=== PATIENT | female | born 1945 | race Caucasian/White ===

== ENCOUNTER 2018-04-17 12:48 | Outpatient (CLI) | payer MEDICARE, MEDICAID, SELFPAY ==
[2018-04-17] VITALS (9 sets, daily range): BP systolic 130–149; BP diastolic 79–103; PULSE 64–92; RESP 12–19; TEMP 36.2; O2SAT 93–100
--- NOTE | 2018-04-17 12:54 | DI.RAD.S_ITS ---
PROCEDURE: PAIN SI JOINT INJECTION INDICATIONS: SACROCOCCYGEAL DISORDER AND SACRAL RIDICULOPATHY FINDINGS: Fluoroscopic spot filming was performed to verify placement of spinal needles at the sacrococcygeal junction level(s), as labeled on the films. Appropriate location(s) of the needle tip(s) was confirmed by injection of iodinated contrast. IMPRESSION: Successful midline sacrococcygeal junction localization for epidural injection. Dictated by: Adrien Quinn M.D. on 04/17/2018 at 16:03 Approved by: Adrien Quinn M.D. on 04/17/2018 at 16:47
--- NOTE | 2018-04-17 13:44 | PM.PROC.1 ---
Procedures Date/Time Date of procedure: 04/17/18 Time of procedure: 14:45 General Procedure description: PREOP DIAGNOSIS 1. COCCYDYNIA POST OP DIAGNOSIS 1. COCCYDYNIA PROCEDURES 1. FLUOROSCOPICALLY GUIDED CONTRAST CONTROLLED SACRO-COCCYGEAL INJECTION PHYSICIAN: DO KATIE Sims Ana is referred by Dr. Rdz for treatment of Coccydynia FINDINGS Multilevel Stenosis S/p Lami/Fusion Syndrome DESCRIPTION OF PROCEDURE Fluoroscopically guided, contrast controlled sacro-coccygial steroid injection with Conscious Sedation Following denial of allergy and review of potential side effects and complications, including but not necessarily limited to infection, allergic reaction, local tissue breakdown, temporary or permanent nerve injury, stroke, paralysis, and possible , the patient indicated that they understood and agreed to proceed. An informed consent document was signed by the patient, witnessed by a nurse, and placed in the patient's chart. Additionally, other treatment options including medications, modalities, and physical therapy were reviewed with the patient. Per the patient request, IV conscious sedation was administered via 4mg of Versed to patient comfort. The patient's vital signs were monitored throughout the procedure by both the nurse and the physician without significant fluctuation. The patient remained conversant throughout the procedure. In the prone position, following sterile prep and drape of the lumbar region, the sacro-coccygial joint was identified fluoroscopically. The skin was anesthetized via a 25-gauge, 1.5-inch needle with approximately 2 cc of 1% lidocaine solution. At this point, a 25-gauge, 2.5-inch needle was atraumatically introduced and advanced under fluoroscopic guidance to the corresponding sacro-coccygeal ligament and joint. Following negative aspiration, injection of approximately 0.3 cc of Isovue 300 confirmed interarticular placement without vascular uptake. Radiological data, including multiple fluoroscopic views of the lumbosacral spine, reveal a spinal needle in the sacral canal through the sacral hiatus. Subsequent views show flow of contrast material superiorly and inferiorly in the sacral canal without vascular or intrathecal uptake. At this point, a total of 3cc including 2cc or 12mg of betamethasone and 1cc of 0.5% Marcaine was injected without complication. The patient was then transferred to the recovery area where they were observed for an appropriate period of time after the injection. The patient reported a VAS score of 10 prior to the procedure and a post-procedure VAS of 2. Fluorscopy Time: 16.7sec Total Conscious Sedation Time: 24min POST OP INSTRUCTIONS The patient was provided a Pain Log to continue to record their response to the target-specific procedure prior to their follow-up visit with the referring physician. Additionally, specific post-injection care instructions and a contact number to our office were provided if concerns arise regarding possible complications associated with the procedure are suspected. David Carlton DO Complications: none
[2018-04-17] MEDS: MIDAZOLAM 5 MG/5 ML VIAL IV (14:28)
[2018-04-17] MEDS: BUPIVACAINE 0.5% (PF) 30 ML VIAL INJ (14:34)
[2018-04-17] MEDS: BETAMETHASONE 30 MG/5 ML MDV 12 MG INJ (14:34)
[2018-04-17] MEDS: IOPAMIDOL 15 ML VIAL 3 ML INJ (14:35)
== END 2018-04-17 15:26 | disposition home or self-care (01) ==
LOC: RAD 12:53
PROVIDERS: Visit Provider Physical Medicine & Rehabilitation
DX: M54.18 Radiculopathy, sacral and sacrococcygeal region (principal); M53.3 Sacrococcygeal disorders, not elsewhere classified
CPT/HCPCS: 27096; 99152; J0702; J2250